=== PATIENT | male | born 1980 | race Caucasian/White ===

== ENCOUNTER 2016-04-11 13:40 | Emergency (ER) | payer OTHER ==
[2016-04-11] MEDS ORDERED: oxyCODONE/Acetamin 5/325 MG* TAB PO ONE ×2 (14:34→14:52)
--- NOTE | 2016-04-11 14:36 | ED ---
Throat Pain/Nasal Congestion - HPI Summary HPI Summary: 35 male presents to ED complaining of tooth pain that started 4 days ago. Patient states he was in senior living for the past 10 years and did not have good dental care. He suffers from crowns and dental caries. Patient stated he was having his teeth cleaned and due to the extensive caries one chipped and has been causing him pain since. Denies trauma. Patient was seen at dentist office on 04/08/16 and prescribed clindamycin and naproxen. He has not had any relief. While at dentist office he was told that the extraction could not be done by the dentist that was available that day and he had to come back this to have it extracted. He complains of 10/10 pain radiating to his left ear. It gets worse at night and nothing has made the pain better. Denies any c/p , trouble breathing, fever/chills and signs of infection (redness, swelling, discharge). - History of Current Complaint Chief Complaint: EDDentalPain Hx Obtained From: Patient Onset/Duration: Sudden Onset, Lasting Days - started 4 days ago Severity: Severe Associated Signs And Symptoms: Positive: Negative Cough: None - Epiglottits Risk Factors Epiglottis Risk Factors: Negative - Allergies/Home Medications Allergies/Adverse Reactions: Allergies Allergy/AdvReac Type Severity Reaction Status Date / Time Amoxicillin Allergy Vomiting Verified 03/12/16 11:39 PMH/Surg Hx/FS Hx/Imm Hx Endocrine/Hematology History: Denies: Hx Diabetes, Hx Thyroid Disease Cardiovascular History: Denies: Hx Hypertension Respiratory History: Denies: Hx Asthma, Hx Chronic Obstructive Pulmonary Disease (COPD) Infectious Disease History: Yes Infectious Disease History: Reports: Hx of Known/Suspected MRSA - lower back 2009 skin Denies: Hx Clostridium Difficile, Hx Hepatitis, Hx Shingles, Hx Tuberculosis , Hx Known/Suspected VRSA, Traveled Outside the [place] in Last 30 Days - Family History Known Family History: Negative: Respiratory Disease - Social History Alcohol Use: Occasionally Substance Use Type: Reports: Cocaine, Marijuana Substance Use Comment - Amount & Last Used: stoppped using 3-4 years ago. Maryuana use occasional Smoking Status (MU): Heavy Every Day Tobacco Smoker Review of Systems Constitutional: Negative Eyes: Negative Positive: Dental Pain, Ear Ache - pain due to dental pain radiating Cardiovascular: Negative Respiratory: Negative Gastrointestinal: Negative Genitourinary: Negative Musculoskeletal: Negative Skin: Negative Positive: Headache Psychological: Normal All Other Systems Reviewed And Are Negative: Yes Physical Exam Triage Information Reviewed: Yes Vital Signs On Initial Exam: Initial Vitals Temp Pulse Resp BP Pulse Ox 97.6 F 65 16 145/68 100 04/11/16 14:01 04/11/16 14:01 04/11/16 14:01 04/11/16 14:01 04/11/16 14:01 Vital Signs Reviewed: Yes Appearance: Positive: Well-Appearing, Well-Nourished, Pain Distress - patient was pacing back and forth in fast-track area due to pain, left hand holding his face. Skin: Positive: Warm, Skin Color Reflects Adequate Perfusion, Dry Head/Face: Positive: Normal Head/Face Inspection Eyes: Positive: Normal ENT: Positive: Normal ENT inspection, Hearing grossly normal, Pharynx normal, TMs normal, Dental tenderness - tooth 20 tender. multiple dental caries and extracted teeth, chipping. no pulp/nerve root exposed or visualized. No signs of erythema, edema, discharge, abscess. Dental: Positive: Percussion Tenderness @ - around area of teeth 19 and 20, Gross Decay/Caries @ - throughout, Dental Fracture @. Negative: Abscess @, Cellulitis @, Cervical Lymphadenopathy, Bleeding, Foreign body Neck: Positive: Supple, Nontender, No Lymphadenopathy Respiratory/Lung Sounds: Positive: Clear to Auscultation, Breath Sounds Present Cardiovascular: Positive: Normal, RRR, Pulses are Symmetrical in both Upper and Lower Extremities Musculoskeletal: Positive: Normal Neurological: Positive: Normal, Sensory/Motor Intact, Alert, Oriented to Person Place, Time Psychiatric: Positive: Normal Procedures - Procedure Summary Procedure Summary: Dr Mcrae preformed a nerve block. see progress note. Diagnostics - Vital Signs Vital Signs Temp Pulse Resp BP Pulse Ox 04/11/16 14:01 97.6 F 65 16 145/68 100 - Laboratory Lab Statement: Any lab studies that have been ordered have been reviewed, and results considered in the medical decision making process. Re-Evaluation - Re-Evaluation First Eval Re-Evaluation Time: 15:35 - after nerve block patient's pain decreased Change: Improved EENT Course/Dx - Course Course Of Treatment: Patient was told to continue medication given to him from dentist and see if he can make an earlier appointment. He was given pain medication while here in ED and Dr Salas preformed a nerve block in the area of pain. - Differential Diagnoses Differential Diagnoses: Dental Abscess, Dental Caries, Fractured Tooth, Periodontic Abscess, Trauma - Diagnoses Provider Diagnoses: Pain due to dental caries, Pain, dental Discharge - Discharge Plan Condition: Improved Disposition: HOME Patient Education Materials: Toothache (ED), Dental Caries (ED) Referrals: No Primary Care Phys,NOPCP [Primary Care Provider] - Additional Instructions: Make sure to follow up with your dentist and call to see if you can make an earlier appointment. Continue taking prescribed antibiotics and naproxen for pain and inflammation as needed. If symptoms do not improve or worsen please return to ED.
[2016-04-11] MEDS ORDERED: oxyCODONE/Acetamin 5/325 MG* TAB ONE (15:02)
[2016-04-11 15:19] VITALS: BP 118/88
--- NOTE | 2016-04-11 15:34 | ED ---
Lila Butler Anna, scribed for Nabil Salas MD on 04/11/16 at 1436 . Course/Dx - Diagnoses Provider Diagnoses: Pain due to dental caries, Pain, dental Procedures - Procedure Summary Procedure Summary: Injected with 1 cc of Lido and epi to left apical surface of tooth number 20. The documentation as recorded by the scribLila montgomery Anna accurately reflects the service I personally performed and the decisions made by Josue sharma Steven, MD.
== END 2016-04-11 15:17 | disposition home or self-care (01) ==
LOC: ED 13:40
DX: K02.9 Dental caries, unspecified (principal)
CPT/HCPCS: 99282; A9270-GY

== ENCOUNTER 2016-05-15 17:19 | Emergency (ER) | payer OTHER ==
[2016-05-15 17:46] VITALS: BP 129/71
--- NOTE | 2016-05-15 20:00 | ED ---
Joyce Butler Michael, scribed for Armond Amin MD on 05/15/16 at 1941 . Respiratory - HPI Summary HPI Summary: 35 y/o male comes to the ED presenting with a intermittent episodes of a non- productive cough that started 5 days ago. The pt states he came to the ED because he believes he has bronchitis and does not have a PCP. He has not taken OTC medication for the cough. The pt denies fever. The PMHx is significant for MRSA. He also smoker one pack of cigarettes per day. - History of Current Complaint Chief Complaint: EDUpperRespComplaint Stated Complaint: COUGH, Time Seen by Provider: 05/15/16 19:11 Hx Obtained From: Patient, Medical Records Onset/Duration: Lasting Days, Still Present Timing: Intermittent Episodes Lasting: Initial Severity: Moderate Current Severity: Moderate Pain Intensity: 0 Character: Cough (Nonproductive) Sputum Amount: None Aggravating Factor(s): Nothing Alleviating Factor(s): Nothing Associated Signs and Symptoms: Negative - fever - Allergy/Home Medications Allergies/Adverse Reactions: Allergies Allergy/AdvReac Type Severity Reaction Status Date / Time Amoxicillin Allergy Vomiting Verified 03/12/16 11:39 PMH/Surg Hx/FS Hx/Imm Hx Endocrine/Hematology History: Denies: Hx Diabetes, Hx Thyroid Disease Cardiovascular History: Denies: Hx Hypertension Respiratory History: Denies: Hx Asthma, Hx Chronic Obstructive Pulmonary Disease (COPD) Infectious Disease History: No Infectious Disease History: Reports: Hx of Known/Suspected MRSA - lower back 2009 skin Denies: Hx Clostridium Difficile, Hx Hepatitis, Hx Shingles, Hx Tuberculosis , Hx Known/Suspected VRSA, Traveled Outside the [place] in Last 30 Days - Family History Known Family History: Negative: Respiratory Disease - Social History Occupation: Employed Full-time Lives: With Family Alcohol Use: Occasionally Substance Use Type: Reports: Cocaine, Marijuana Substance Use Comment - Amount & Last Used: stoppped using 3-4 years ago. Maryuana use occasional Smoking Status (MU): Heavy Every Day Tobacco Smoker Review of Systems Negative: Fever Positive: Cough All Other Systems Reviewed And Are Negative: Yes Physical Exam Triage Information Reviewed: Yes Vital Signs On Initial Exam: Initial Vitals Temp Pulse Resp BP Pulse Ox 99.7 F 107 20 129/71 99 05/15/16 17:41 05/15/16 17:41 05/15/16 17:41 05/15/16 17:41 05/15/16 17:41 Vital Signs Reviewed: Yes Appearance: Positive: Well-Appearing, No Pain Distress Skin: Positive: Warm Head/Face: Positive: Normal Head/Face Inspection Eyes: Positive: SARAH ENT: Positive: Hearing grossly normal Neck: Positive: Supple Respiratory/Lung Sounds: Positive: Clear to Auscultation, Breath Sounds Present Cardiovascular: Positive: RRR Abdomen Description: Positive: Nontender, Soft Musculoskeletal: Positive: Strength/ROM Intact Neurological: Positive: Sensory/Motor Intact, Normal Gait Diagnostics - Vital Signs Vital Signs Temp Pulse Resp BP Pulse Ox 05/15/16 17:41 99.7 F 107 20 129/71 99 - Laboratory Lab Statement: Any lab studies that have been ordered have been reviewed, and results considered in the medical decision making process. Disposition - Diagnoses Provider Diagnoses: Bronchitis Discharge - Discharge Plan Condition: Stable Disposition: HOME Prescriptions: Azithromycin TAB* [Zithromax TAB (Z-LARA) 250 mg #6 tabs] 2 tab PO .TODAY, THEN 1 DAILY #1 lara Patient Education Materials: Acute Bronchitis (ED) Referrals: [facility] [Outside] Additional Instructions: You will follow up with [facility] [place] within the next 2-3 days. Please return to the ED if your symptoms worsen. The documentation as recorded by the Joyce whitfield Michael accurately reflects the service I personally performed and the decisions made by me, Armond Amin MD.
== END 2016-05-15 19:53 | disposition home or self-care (01) ==
LOC: ED 17:19
DX: J40 Bronchitis, not specified as acute or chronic (principal); F17.210 Nicotine dependence, cigarettes, uncomplicated; Z88.0 Allergy status to penicillin; Z86.14 Personal history of Methicillin resistant Staphylococcus aureus infection
CPT/HCPCS: 99282

== ENCOUNTER 2016-06-26 11:03 | Emergency (ER) | payer SELFPAY ==
--- NOTE | 2016-06-26 12:20 | RAD ---
INDICATION: Trauma, neck pain. COMPARISON: There are no prior studies available for comparison. TECHNIQUE: Contiguous axial sections were obtained from the skull base through the T1 vertebra. Images were reconstructed in the sagittal and coronal planes. FINDINGS: The vertebra are in normal alignment. No prevertebral soft tissue swelling or fracture is seen. At the C5-C6 level there is mild posterior uncinate process spurring. No significant spinal canal narrowing is present. There is mild to moderate bilateral neural foraminal narrowing. The remaining disc levels appear within normal limits. Mild emphysematous change is noted at the lung apices. IMPRESSION: 1. NO EVIDENCE FOR FRACTURE OR SUBLUXATION. 2. MILD CERVICAL SPONDYLOSIS.
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
[2016-06-26 13:04] VITALS: BP 101/67
== END 2016-06-26 13:02 | disposition home or self-care (01) ==
LOC: ED 11:03
DX: M47.9 Spondylosis, unspecified (principal); M25.511 Pain in right shoulder; M54.2 Cervicalgia; R53.83 Other fatigue; F17.210 Nicotine dependence, cigarettes, uncomplicated
CPT/HCPCS: 72125; 99281

== ENCOUNTER → 2016-12-15 17:16 | Emergency (ER) | payer MEDICAID ==
[~2016-12-15 17:16] MED LIST: Ibuprofen TAB* 800 MG PO ONE; Sulfamethox/Trimethoprim DS 800/160* TAB PO ONE
[2016-12-15 18:45] VITALS: BP 103/62
--- NOTE | 2016-12-15 19:01 | ED ---
Skin Complaint - HPI Summary HPI Summary: Pt here w/ chin swelling, redness, pain and suspected infection. Started as a bump yesterday - much more swollen today. Got a little white drainage out earlier today - has been using hot compresses - feels like it's making it worse. Has not tried meds for pain yet. Denies fever, chills, N/V/D, headache, difficulty swallowing or breathing. Has not been eating much d/t pain over swelling with opening mouth - is able to drink and swallow w/o difficulty. H/o MRSA and is concerned this may be the same. Shaved the day before sx started - wondering if this caused the issue. Imms are UTD. - History of Current Complaint Chief Complaint: EDGeneral Time Seen by Provider: 12/15/16 17:32 Stated Complaint: DENTAL PAIN/MOUTH SWELLING Hx Obtained From: Patient Pain Intensity: 9 - Allergy/Home Medications Allergies/Adverse Reactions: Allergies Allergy/AdvReac Type Severity Reaction Status Date / Time Amoxicillin Allergy Vomiting Verified 06/26/16 11:11 PMH/Surg Hx/FS Hx/Imm Hx Previously Healthy: Yes Endocrine/Hematology History: Denies: Hx Diabetes, Hx Thyroid Disease Cardiovascular History: Denies: Hx Hypertension Respiratory History: Denies: Hx Asthma, Hx Chronic Obstructive Pulmonary Disease (COPD) - Immunization History Date of Tetanus Vaccine: up to date Infectious Disease History: Yes Infectious Disease History: Reports: Hx of Known/Suspected MRSA - lower back 2009 skin Denies: Hx Clostridium Difficile, Hx Hepatitis, Hx Shingles, Hx Tuberculosis , Hx Known/Suspected VRSA, Traveled Outside the [place] in Last 30 Days - Family History Known Family History: Positive: Diabetes Negative: Respiratory Disease - Social History Occupation: Employed Full-time Lives: With Family Alcohol Use: Rare Alcohol Amount: 2/mo Substance Use Type: Reports: Cocaine, Marijuana Substance Use Comment - Amount & Last Used: stoppped using COCAINE MONTHS AGO; MARIJUANA use occasional Hx Tobacco Use: Yes Smoking Status (MU): Current Every Day Smoker Review of Systems Constitutional: Negative Negative: Fever, Chills Negative: Dental Pain, Sore Throat, Ear Ache, Nasal Discharge Cardiovascular: Negative Negative: Chest Pain Respiratory: Negative Negative: Shortness Of Breath Gastrointestinal: Negative Negative: Abdominal Pain, Vomiting, Diarrhea, Nausea Positive: no symptoms reported Musculoskeletal: Negative Skin: Other - see HPI Neurological: Negative Positive: Anxious All Other Systems Reviewed And Are Negative: Yes Physical Exam Triage Information Reviewed: Yes Vital Signs On Initial Exam: Initial Vitals Temp Pulse Resp BP Pulse Ox 99.2 F 93 20 118/69 93 12/15/16 17:28 12/15/16 17:28 12/15/16 17:28 12/15/16 17:28 12/15/16 17:28 Vital Signs Reviewed: Yes Appearance: Positive: Well-Appearing, Well-Nourished, Pain Distress - mild - worse w/ facial movements Skin: Positive: Warm - shiny erythema w/ edema and induration over Rt chin - honey colored crusting - no pustule, no d/c, no fluctuance Head/Face: Positive: Normal Head/Face Inspection Eyes: Positive: Normal, EOMI, Conjunctiva Clear. Negative: Conjunctiva Inflammed, Discharge ENT: Positive: Normal ENT inspection, Hearing grossly normal, Pharynx normal. Negative: Trismus Dental: Negative: Abscess @ Neck: Positive: Supple, Nontender, Enlarged Nodes @ - #[address] <1cm on Rt - mobile w/ mild TTP Respiratory/Lung Sounds: Positive: Clear to Auscultation, Breath Sounds Present. Negative: Stridor Cardiovascular: Positive: Normal, RRR Musculoskeletal: Positive: Normal, Strength/ROM Intact Neurological: Positive: Normal, Sensory/Motor Intact, Alert, Oriented to Person Place, Time, CN Intact II-III Psychiatric: Positive: Anxious - pleasant and cooperative - Tiny Coma Scale Coma Scale Total: 15 Diagnostics - Vital Signs Vital Signs Temp Pulse Resp BP Pulse Ox 12/15/16 18:44 99.2 F 72 22 103/62 98 12/15/16 17:28 99.2 F 93 20 118/69 93 - Laboratory Lab Statement: Any lab studies that have been ordered have been reviewed, and results considered in the medical decision making process. Course/Dx - Course Course Of Treatment: Suspect cellulitis started from shaving trauma - razor may carry bacteria or pt's colonization of MRSA may have triggered infection. Offered IV anbx and toradol - pt states he doesn't like needles and will try PO meds at home w/ f/u as needed. Advised on care and danger s/sx of when to return to ED. - Diagnoses Provider Diagnoses: Cellulitis of chin Discharge - Discharge Plan Condition: Stable Disposition: HOME Prescriptions: Ibuprofen TAB* [Motrin TAB* 800 MG] 800 mg PO Q8HR #20 tab Mupirocin 2% OINT* [Bactroban 2 % Oint*] 1 applic TOPICAL BID #1 tube Sulfamethox/Trimethoprim DS* [Bactrim DS 800/160 TAB*] 1 tab PO BID #19 tab Patient Education Materials: Cellulitis (ED) Referrals: [facility] [Outside] Additional Instructions: Apply warm compress - may try epsom salt warm compress intermittently to help reduce swelling Wash daily with soap and water - rinse well and pat dry with clean paper towel then discard to prevent spread of infection - apply mupirocin antibiotic ointment to area 2 x day Complete antibiotics Stay nourished and hydrated by drinking water, gatorade, broth, etc Follow-up with PCP in 3 days *If worse, return to ED
== END | disposition home or self-care (01) ==
LOC: ED 17:16
DX: L03.211 Cellulitis of face (principal); F41.9 Anxiety disorder, unspecified; F17.210 Nicotine dependence, cigarettes, uncomplicated
CPT/HCPCS: 99282